=== PATIENT | female | born 1980 | race Caucasian/White ===

== ENCOUNTER → 2017-07-12 14:04 | Outpatient (CLI) | payer BC, SELFPAY ==
[2017-07-12 22:09] LABS: Group B Strep DNA By PCR Negative (Negative); Internal Control PASS; Probe Check PASS; Specimen Processing Control PASS
== END ==
PROVIDERS: Visit Provider Obstetrics & Gynecology
DX: Z36.85 Encounter for antenatal screening for Streptococcus B (principal)
CPT/HCPCS: 87081; 87653

== ENCOUNTER 2017-07-20 06:00 | Inpatient (IN) | payer BC, SELFPAY ==
[2017-07-20 06:14] VITALS: BMI 29.7
[2017-07-20] MEDS: Lactated Ringers 1,000 ML 50 ML IV (06:20)
[2017-07-20 06:40] LABS: Hemoglobin 12.8 g/dl (12.0-15.0); Mean Corp Hgb Conc 33.7 g/gl (32-36); Mean Corpuscular Hgb 30.9 pg (27.0-32.0); Mean Corpuscular Volume 91.8 fL (81-99); Mean Platelet Vol. 12.8 fl (6.2-12.0); Platelet Count 163 K/mm3 (150-450); RBC Distribution Width CV 13.3 % (11.6-14.6); RBC Distribution Width SD 44.2 fl (35.1-43.9); Red Blood Count 4.14 M/mm3 (4.2-5.4); White Blood Count 11.5 K/mm3 (4.4-11.0)
[2017-07-20 06:49] LABS: Scan Indicated on CBC? Y/N NO
[2017-07-20] MEDS: Oxytocin 10 UNITS/ML Vial IM (07:02)
--- NOTE | 2017-07-20 07:32 | PCM.OB.VAG ---
- Problem List (1) (spontaneous vaginal delivery) Status: Acute (2) Precipitate labor, delivered, current hospitalization Status: Acute Vaginal Delivery Maternal Presentation: Active Labor Amniotic Membrane Rupture Type: Spontaneous at home Rupture of Membrane time: 07/20/17 0605h Amniotic Fluid Description: Bloody Final BAKARI: 08/06/17 Final BAKARI Source: US <20 weeks Gestational age: 37 Weeks and 4 Days Date of Procedure: 07/20/17 Pre-Operative Diagnosis: 37 4/7wga, labor Post-Operative Diagnosis: 37 4/7wga, labor Surgery/ Procedure Performed: Vacuum Assisted Vaginal Delivery Type of Anesthesia: Local with 1% lidocaine Description of Procedure: Patient was FD/+1 station in OA. She pushed to +4 station with prolonged heart rate deceleration to 70s bpm. I advised vacuum extraction to expedite delivery with review of risk for scalp laceration, subgaleal hemorrhage, hematoma, swelling and maternal lacerations. Patient and agreed to proceed. The vacuum was applied at the flexion point to 480mmHg at 0649h. A single pull was performed with maternal pushing effort and the head delivered. The vacuum suction was released and the infant delivered at 0649h also. The infant was placed on the maternal abdomen and further attended by nursery personnel. Cord gas specimen were obtained. The placenta delivered spontaneously and appeared intact on inspection. A second degree perineal laceration was repaired with 3-0 Vicryl Rapide following administration of 20cc of 1% lidocaine. Sponge counts were correct. Presentation: Vertex Placental Delivery Description: Spontaneous Placenta Disposition: [facility] Cord Vessel Description: 3 Vessels Nuchal Cord Compression: Without compression Cord Gases drawn per routine: ABG, VBG Cord Entanglement: None Estimated Blood Loss: 300 A gender: Male (1 minute): 8 (5 minute): 9 Episiotomy Description: None Laceration: None Medications given after delivery: - - IM pitocin Complications: None
--- NOTE | 2017-07-20 07:41 | OP.PCM_ITS ---
- Problem List (1) (spontaneous vaginal delivery) Status: Acute (2) Precipitate labor, delivered, current hospitalization Status: Acute Vaginal Delivery Maternal Presentation: Active Labor Amniotic Membrane Rupture Type: Spontaneous at home Rupture of Membrane time: 07/20/17 0605h Amniotic Fluid Description: Bloody Final BAKARI: 08/06/17 Final BAKARI Source: US <20 weeks Gestational age: 37 Weeks and 4 Days Date of Procedure: 07/20/17 Pre-Operative Diagnosis: 37 4/7wga, labor Post-Operative Diagnosis: 37 4/7wga, labor Surgery/ Procedure Performed: Vacuum Assisted Vaginal Delivery Type of Anesthesia: Local with 1% lidocaine Description of Procedure: Patient was FD/+1 station in OA. She pushed to +4 station with prolonged heart rate deceleration to 70s bpm. I advised vacuum extraction to expedite delivery with review of risk for scalp laceration, subgaleal hemorrhage , hematoma, swelling and maternal lacerations. Patient and agreed to proceed. The vacuum was applied at the flexion point to 480mmHg at 0649h. A single pull was performed with maternal pushing effort and the head delivered. The vacuum suction was released and the delivered at 0649h also. The was placed on the maternal abdomen and further attended by nursery personnel. Cord gas specimen were obtained. The placenta delivered spontaneously and appeared intact on inspection. A second degree perineal laceration was repaired with 3-0 Vicryl Rapide following administration of 20cc of 1% lidocaine. Sponge counts were correct. Presentation: Vertex Placental Delivery Description: Spontaneous Placenta Disposition: [facility] Cord Vessel Description: 3 Vessels Nuchal Cord Compression: Without compression Cord Gases drawn per routine: ABG, VBG Cord Entanglement: None Estimated Blood Loss: 300 Infant A gender: Male (1 minute): 8 (5 minute): 9 Episiotomy Description: None Laceration: None Medications given after delivery: - - IM pitocin Complications: None
--- NOTE | 2017-07-20 07:45 | PCM.DCVAG ---
Discharge Diet: No Restrictions Discharge Activity: Return to Normal Activity, May Shower, May Take a Tub Bath May resume sexual activity in: 6 weeks Lifting Restrictions: 10-20lb Additional Activity Instructions:: You may return to work/school in 6 weeks. Call your doctor if your incision/area has: Continuous Slow Oozing, Sudden Increased Bleeding, Increased Pain/ Swelling, Increased Redness, Foul Smelling Discharge Suture Line Care: Avoid Pulling/Pushing Cleanse incision/area with: Soap & Water Instructions: After Episiotomy Additional Instructions: If you experience any of the following, contact your healthcare provider. Bleeding that soaks a pad every hour for 2 hours Fever 100.4 or higher Unrelieved incision or abdominal pain Swelling, redness, discharge or bleeding from your incision or episiotomy site Your incision begins to separate Problems urinating (including inability to urinate or burning while urinating). Visual changes Severe headache Flu-like symptoms Pain or redness in one of both of your breasts Pain, warmth, tenderness or swelling in your legs, especially the calf area Frequent nausea and vomiting Symptoms of depression or anxiety If you experience any of the following, call 911 or go to the nearest Emergency Room. Chest pain Problems breathing Seizure activity Partial or complete paralysis of a body part, slurred speech, weakness or drooping of the face, or a sudden inability to walk or hold your balance Allergies/Adverse Reactions: Allergies No Known Allergies Allergy (Verified 07/20/17 06:17) Medications to take at Discharge Butalbital/Aspirin/Caffeine [Fiorinal 50-325-40 mg Capsule] 2 each PO Q4H 07/20/17 Ibuprofen 800 mg PO TID PRN #30 tab 07/20/17 Prenatabs FA 1 tablet PO DAILY 07/20/17 Senna/Docusate Sodium [Senokot-S] 1 - 2 tab PO DAILY PRN PRN #60 tab 07/20/17 The following prescriptions were given: Senna/Docusate Sodium [Senokot-S] 1 - 2 tab PO DAILY PRN PRN #60 tab PRN Reason: Constipation Ibuprofen 800 mg PO TID PRN #30 tab PRN Reason: Pain Please Follow Up With: Av Nunez MD When: 6 weeks Primary Care Physician: Care Physician,No Primary [Primary Care Provider] -
--- NOTE | 2017-07-20 07:48 | DCINST_ITS ---
Discharge Diet: No Restrictions Discharge Activity: Return to Normal Activity, May Shower, May Take a Tub Bath May resume sexual activity in: 6 weeks Lifting Restrictions: 10-20lb Additional Activity Instructions:: You may return to work/school in 6 weeks. Call your doctor if your incision/area has: Continuous Slow Oozing, Sudden Increased Bleeding, Increased Pain/ Swelling, Increased Redness, Foul Smelling Discharge Suture Line Care: Avoid Pulling/Pushing Cleanse incision/area with: Soap & Water Instructions: After Episiotomy Additional Instructions: If you experience any of the following, contact your healthcare provider. * Bleeding that soaks a pad every hour for 2 hours * Fever 100.4 or higher * Unrelieved incision or abdominal pain * Swelling, redness, discharge or bleeding from your incision or episiotomy site * Your incision begins to separate * Problems urinating (including inability to urinate or burning while urinating) . * Visual changes * Severe headache * Flu-like symptoms * Pain or redness in one of both of your breasts * Pain, warmth, tenderness or swelling in your legs, especially the calf area * Frequent nausea and vomiting * Symptoms of depression or anxiety If you experience any of the following, call 911 or go to the nearest Emergency Room. * Chest pain * Problems breathing * Seizure activity * Partial or complete paralysis of a body part, slurred speech, weakness or drooping of the face, or a sudden inability to walk or hold your balance Allergies/Adverse Reactions: Allergies No Known Allergies Allergy (Verified 07/20/17 06:17) Medications to take at Discharge Butalbital/Aspirin/Caffeine [Fiorinal 50-325-40 mg Capsule] 2 each PO Q4H Ibuprofen 800 mg PO TID PRN #30 tab 07/20/17 Prenatabs FA 1 tablet PO DAILY 07/20/17 Senna/Docusate Sodium [Senokot-S] 1 - 2 tab PO DAILY PRN PRN #60 tab 07/20/17 The following prescriptions were given: Senna/Docusate Sodium [Senokot-S] 1 - 2 tab PO DAILY PRN PRN #60 tab PRN Reason: Constipation Ibuprofen 800 mg PO TID PRN #30 tab PRN Reason: Pain Please Follow Up With: Av Nunez MD When: 6 weeks Primary Care Physician: Care Physician,No Primary [Primary Care Provider] -
[2017-07-20] MEDS: Ibuprofen 600 MG Tablet PO ×2 (11:53→19:48)
[2017-07-20] MEDS: Prenatal Vits Tablet 1 TABLET PO (11:54)
[2017-07-20 12:02] VITALS: BP 144/86; PULSE 69; RESP 18; TEMP 37
[2017-07-20] MEDS: Acetaminophen 500 MG Tablet 1000 MG PO (15:40)
[2017-07-20 15:44] VITALS: BP 123/75; PULSE 86; RESP 18; TEMP 36.9; O2SAT 97
[2017-07-20 19:49] VITALS: BP 117/64; PULSE 69; RESP 18; TEMP 36.8
[2017-07-21 01:00] VITALS: BP 116/74; PULSE 80; RESP 18; TEMP 37.2
[2017-07-21 04:00] VITALS: BP 127/76; PULSE 78; RESP 18; TEMP 37
[2017-07-21] MEDS: Ibuprofen 600 MG Tablet PO ×3 (04:44→19:26)
[2017-07-21 07:30] VITALS: BP 127/76; PULSE 71; RESP 17; TEMP 36.6; O2SAT 100
--- NOTE | 2017-07-21 08:05 | PCM.PN.OB ---
Patient Problems: Active and Suspected Problems (spontaneous vaginal delivery) (Acute) Precipitate labor, delivered, current hospitalization (Acute) Subjective: No issues overnight. She is sore, but discomfort manageable. OOB. She is . Denies heavy lochia. Objective: AVSS - Physical Exam General: Alert, Oriented x3, Cooperative, No apparent distress HEENT: Atraumatic, Normocephalic Lungs: Clear to auscultation, Normal air movement Cardiovascular: Regular rate, Regular Rhythm, Normal S1, Normal S2 Abdomen: Soft, Non Tender, Non-Distended, - - Fundus firm and nontender, lochia moderate Extremities: No edema, No Calf Tenderness Neurological: Neuro grossly intact Psych/Mental Status: Normal Affect, Appropriate, Alert and oriented to time, place, person, mood and affect Vital Signs Temp Pulse Resp BP Pulse Ox 98.6 F 78 18 127/76 H 97 07/21/17 04:00 07/21/17 04:00 07/21/17 04:00 07/21/17 04:00 07/20/17 15:44 Oxygen Delivery Method Room Air Weight: 93.894 kg Body Mass Index (BMI) 29.7 Intake and Output for Last 24 Hours 07/19/17 07/20/17 07/21/17 23:59 23:59 23:59 Output Total 1000 / 1000 Balance -1000 / -1000 Laboratory Tests Past 24 Hrs 07/20/17 06:28 Blood Type A POSITIVE Antibody Screen NEGATIVE Assessment/Plan Active and Suspected Problems (spontaneous vaginal delivery) (Acute) Precipitate labor, delivered, current hospitalization (Acute) 36yo PPD#1 s/p doing well -A positive, Rubella immune - -Routine care
[2017-07-21 13:00] VITALS: BP 139/88; PULSE 83; RESP 16; TEMP 36.8
[2017-07-21] MEDS: Prenatal Vits Tablet 1 TABLET PO (13:06)
[2017-07-21 19:55] VITALS: BP 125/78; PULSE 77; RESP 18; TEMP 36.8
[2017-07-22 02:40] VITALS: BP 126/80; PULSE 63; RESP 16; TEMP 36.4
[2017-07-22 07:27] VITALS: BP 139/89; PULSE 79; RESP 14; TEMP 36.8; O2SAT 97
--- NOTE | 2017-07-22 08:04 | PCM.PN.OB ---
Patient Problems: Active and Suspected Problems (spontaneous vaginal delivery) (Acute) Precipitate labor, delivered, current hospitalization (Acute) Subjective: PPD#2 Doing well overall. H/O depression but nothing recent., states some baby tears. Breast feeding well and has pump already from her insurance. States baby needs repeat bili level early afternoon. Offered and declined med for pp depression. States burning at perineum and would like a spray sent [facility] to [facility] to use prn. has been using Tucks but almost out of these. - Physical Exam General: Alert, Oriented x3, Cooperative, No apparent distress HEENT: Atraumatic Neck: Supple Abdomen: Soft - Fundus firm NT at approx 2 cm inferior to umbilicus Neurological: Cranial nerves II-XII grossly intact Psych/Mental Status: Normal Affect Vital Signs Temp Pulse Resp BP Pulse Ox 98.2 F 79 14 139/89 H 97 07/22/17 07:27 07/22/17 07:27 07/22/17 07:27 07/22/17 07:27 07/22/17 07:27 Oxygen Delivery Method Room Air Weight: 93.894 kg Body Mass Index (BMI) 29.7 Intake and Output for Last 24 Hours 07/20/17 07/21/17 07/22/17 23:59 23:59 23:59 Output Total 1000 / 1000 Balance -1000 / -1000 Assessment/Plan Active and Suspected Problems (spontaneous vaginal delivery) (Acute) Precipitate labor, delivered, current hospitalization (Acute) PPD#2 Stable pp. Dischg home. RTOi n 6 wk. Social svc consult prior to dischg. Reviewed s/sx of PP depression and encouraged to call in to ofc prn. To ED if severe sx or SI/HI. Declines med for now.
[2017-07-22] MEDS: Ibuprofen 600 MG Tablet PO ×2 (08:28→17:21)
[2017-07-22] MEDS: Acetaminophen 500 MG Tablet 1000 MG PO (11:09)
[2017-07-22] MEDS: Prenatal Vits Tablet 1 TABLET PO (11:09)
--- NOTE | 2017-07-22 12:52 | NURSING ---
This director school of nursing reviewed the charting completed by Kayy Simmons student nurse and it is complete.
--- NOTE | 2017-07-22 14:59 | NURSING ---
1100 While rounding, Mom continues to be nursing well and does not desire any help with latching. We discussed feeding every 2-3 hrs and prior massage and expression to help with her milk supply. Mom has her home breast pump here and knowledgeable of using her pump. Encouraged Mom to call if any further questions or concerns with feedings. Hank
[2017-07-22 16:00] VITALS: BP 141/81; PULSE 72; RESP 18; TEMP 36.7; O2SAT 95
== END 2017-07-22 18:00 | disposition home or self-care (01) | DRG 774 ==
PROVIDERS: Admitting Provider Obstetrics & Gynecology; Visit Provider Obstetrics & Gynecology
DX: O76 Abnormality in fetal heart rate and rhythm complicating labor and delivery (principal); O99.42 Diseases of the circulatory system complicating childbirth; O42.02 Full-term premature rupture of membranes, onset of labor within 24 hours of rupture; O62.3 Precipitate labor; O70.1 Second degree perineal laceration during delivery; O90.89 Other complications of the puerperium, not elsewhere classified; R10.2 Pelvic and perineal pain; Z37.0 Single live birth; Z3A.37 37 weeks gestation of pregnancy; Z87.891 Personal history of nicotine dependence
CPT/HCPCS: 59025; 59050; 85027; 86850; 86900; 99218; J7120; G0378